=== PATIENT | female | born 1965 | race African-American/Black ===

== ENCOUNTER 2018-11-10 13:52 | Emergency (ER) | payer OTHER ==
[~2018-11-10] VITALS: Ht 162.6 cm; Wt 60.3 kg
[~2018-11-10 13:52] MED LIST: AUGMENTIN 875875 MG PO; NORCO 5-325 TA1 EACH PO
[2018-11-10 15:20] LABS: URINE BILIRUBIN NEGATIVE (Negative); URINE BLOOD 3+ (Negative); URINE CLARITY CLEAR; URINE COLOR YELLOW; URINE GLUCOSE-RANDOM NEGATIVE (Negative); URINE KETONES NEGATIVE (Negative); URINE NITRITE-REFLEX NEGATIVE (Negative); URINE PROTEIN 1+ (Negative); URINE SPECIFIC GRAVITY 1.015 (1.005-1.030); URINE UROBILINOGEN 0.2 E.U./dl (0.2-1.0)
[2018-11-10 15:26] LABS: URINE LEUKOCYTES-REFLEX 3+ (Negative)
[2018-11-10 15:27] LABS: CASTS None Seen /LPF (None Seen); CRYSTALS None Seen /LPF (None Seen); SQUAMOUS 0-3 Few /LPF (0-3); URINE RBC 0-2 Rare /HPF (0-2); URINE WBC-REFLEX >25 Many /HPF (0-5)
[2018-11-10] MEDS ORDERED: FLAGYL500 M1 PO (16:19)
[2018-11-10] MEDS ORDERED: MACROBID 100 M100 M2 PO (16:19)
[2018-11-10] MEDS ORDERED: PYRIDIUM100 M1 PO (16:19)
[2018-11-10 16:35] VITALS: BP 105/75
== END 2018-11-10 16:35 | disposition home or self-care (01) ==
LOC: M.ERS 13:52
PROVIDERS: Nurse Practitioner Family
DX: N39.0 Urinary tract infection, site not specified (principal); N76.0 Acute vaginitis; B96.89 Other specified bacterial agents as the cause of diseases classified elsewhere

== ENCOUNTER 2020-08-10 08:20 | Emergency (ER) | payer OTHER ==
[~2020-08-10] VITALS: Ht 160 cm; Wt 67.1 kg
[~2020-08-10 08:20] MED LIST changes: +FLAGYL500 M1 PO; +MACROBID 100 M100 M2 PO; +PYRIDIUM100 M1 PO
[2020-08-10 08:37] LABS: URINE BLOOD 3+ (Negative); URINE CLARITY CLEAR; URINE COLOR YELLOW; URINE GLUCOSE-RANDOM NEGATIVE (Negative); URINE KETONES TRACE (Negative); URINE PROTEIN 2+ (Negative); URINE SPECIFIC GRAVITY 1.025 (1.005-1.030)
[2020-08-10 08:42] LABS: URINE BILIRUBIN 1+ (Negative); URINE LEUKOCYTES-REFLEX 3+ (Negative); URINE NITRITE-REFLEX POSITIVE (Negative)
[2020-08-10 08:44] LABS: ICTOTEST (BILI CONFIRMATORY) Positive (Negative)
[2020-08-10 08:46] LABS: CRYSTALS None Seen /LPF (None Seen); HYALINE CASTS 0-3 Few /LPF (None Seen); SQUAMOUS 0-3 Few /LPF (0-3); URINE RBC 0-2 Rare /HPF (0-2); URINE WBC-REFLEX 6-15 Few /HPF (0-5)
[2020-08-10] MEDS ORDERED: BACTRIM DS TAB1 EAC1 PO (08:58)
[2020-08-10] MEDS ORDERED: PYRIDIUM200 MG PO (08:58)
[2020-08-10 09:32] VITALS: BP 116/72
== END 2020-08-10 09:33 | disposition home or self-care (01) ==
LOC: M.ERS 08:20
PROVIDERS: Emergency Medicine Emergency Medical Services
DX: N39.0 Urinary tract infection, site not specified (principal)